=== PATIENT | female | born 1960 | race Caucasian/White ===

== ENCOUNTER → 2017-05-30 | Outpatient (CLI) | payer OTHER | LOC: M SLEEP 19:28 | DX: G47.33 Obstructive sleep apnea (adult) (pediatric) (principal) | CPT/HCPCS: 95811 ==

== ENCOUNTER → 2018-02-16 | Outpatient (CLI) | payer OTHER ==
[~2018-02-16] MED LIST: PROHANCE 279.3MG/ML 15ML VIAL (A9576) As Ordered
== END ==
LOC: M RAD 06:57
DX: R16.0 Hepatomegaly, not elsewhere classified (principal); R60.1 Generalized edema; E27.9 Disorder of adrenal gland, unspecified

== ENCOUNTER → 2019-11-02 | Outpatient (CLI) | payer OTHER ==
--- NOTE | 2019-11-02 17:30 | REP ---
REASON FOR EXAM: Tobacco abuse. There are no priors for comparison. The examination is markedly limited by the patient's body habitus and respiratory motion artifact. There are no priors for comparison. As per the protocol, only lung window images were sent to the read station for interpretation. There are scattered asymmetric densities throughout the lung arredondo. These could obscure significant nodules. There is a nodule in the right upper lobe posteriorly, which measures 8 mm. Hounsfield unit readings on this nodule show it is partially calcified. There is evidence of cardiomegaly. Lymphadenopathy cannot be assessed for due to limitations of the exam. IMPRESSION: 1. Markedly limited exam. 2. Evidence of a calcifying nodule on the right upper lobe as described above. 3. Exam is limited to such a degree of a standard protocol contrast enhanced CT examination of the chest would be indicated in this patient. Electronically Signed by Keith Arriaga DO 11/03/2019 08:38 A
== END ==
LOC: M RAD 12:55
PROVIDERS: ATTEND Nurse Practitioner Family
DX: Z87.891 Personal history of nicotine dependence (principal)

== ENCOUNTER → 2021-06-25 | Outpatient (REF) | payer OTHER | LOC: M LAB REF 13:05 | PROVIDERS: ATTEND Nurse Practitioner Family | DX: N18.31 Chronic kidney disease, stage 3a (principal) ==

== ENCOUNTER 2024-08-15 08:42 | Inpatient (IN) | payer OTHER ==
[2024-08-15] VITALS (16 sets, daily range): BP systolic 91–116; BP diastolic 52–77; TEMP 96.9–97.8; O2SAT 92–98
[~2024-08-15] VITALS: Ht 170.2 cm; Wt 148.6 kg
[2024-08-15] MEDS: FORMOTEROL FUMARATE 20 MCG/2 ML INHALATION SOLUTION (PERFOROMIST) INH SCH (08:00)
[2024-08-15] MEDS: GLYCOPYRROLATE INJ 0.2 MG/ML 2 ML VIAL NEB SCH (08:00)
[2024-08-15] MEDS: ASPIRIN 81MG ENTERIC TABLET PO SCH (09:00)
[2024-08-15] MEDS ORDERED: GLUCOSE 4 GM CHEW PO PRN (11:45)
[2024-08-15] MEDS ORDERED: GLUCAGON INJ 1MG VIAL SC PRN (11:45)
[2024-08-15] MEDS ORDERED: DEXTROSE 50% 50ML SYRINGE IV PRN (11:45)
[2024-08-15] MEDS: INSULIN LISPRO (NovoLOG) PER UNIT SC SCH ×2 (13:30→21:00)
[2024-08-15] MEDS: methylPREDNISolone 125MG 2ML VIAL IV SCH (13:58)
[2024-08-15] MEDS: FUROSEMIDE 100MG/10ML VIAL IV ONE (13:58)
[2024-08-15] MEDS ORDERED: METO50TA7 PO (14:26)
[2024-08-15] MEDS ORDERED: FAMO1TAB11 PO (14:26)
[2024-08-15] MEDS ORDERED: ERGO500029 PO (14:26)
[2024-08-15] MEDS ORDERED: ENTR1TAB PO (14:26)
[2024-08-15] MEDS ORDERED: LEVO50TA5 PO (14:26)
[2024-08-15] MEDS ORDERED: TORS20TA2 PO (14:26)
[2024-08-15] MEDS ORDERED: POTA-151 PO (14:26)
[2024-08-15] MEDS ORDERED: SIMV40TA20 PO (14:26)
[2024-08-15] MEDS ORDERED: SYMB16INH INH (14:26)
[2024-08-15] MEDS ORDERED: FOLI1TAB11 PO (14:26)
[2024-08-15] MEDS ORDERED: CALC1CAP31 PO (14:26)
[2024-08-15] MEDS ORDERED: ALLO100T PO (14:26)
[2024-08-15] MEDS ORDERED: ASPI-226 PO (14:26)
[2024-08-15] MEDS ORDERED: VENTAER INH (14:26)
[2024-08-15] MEDS ORDERED: JARD1TAB3 PO (14:26)
[2024-08-15] MEDS ORDERED: LORA-1041 PO (14:26)
[2024-08-15] MEDS ORDERED: SPIR-10 PO (14:26)
[2024-08-15] MEDS ORDERED: HOME MED LIST COMPLETE! XX SCH (14:30)
[2024-08-15] MEDS: AZITHROMYCIN 250MG TABLET PO SCH (14:40)
[2024-08-15] MEDS: OSELTAMIVIR PHOSPHATE 75 MG CAP PO SCH (14:40)
[2024-08-15 17:25] LABS: ALBUMIN 3.4 G/DL (3.2-5.2); ALKALINE PHOSPHATASE 169 U/L (35-104); ALT/SGPT 23 U/L (7.0-40); AST/SGOT 28 U/L (<34); BILIRUBIN,TOTAL 0.5 MG/DL (0.3-1.2); BLOOD UREA NITROGEN 22 MG/DL (9-23); CARBON DIOXIDE LEVEL 38 MMOL/L (20-31); CHLORIDE LEVEL 94 MMOL/L (98-107); CREATININE FOR GFR 0.96 MG/DL (0.55-1.30); GLOMERULAR FILTRATION RATE > 60.0 (>45); GLUCOSE, FASTING 120 MG/DL (74-106); MAGNESIUM LEVEL 2.2 MG/DL (1.8-2.4); POTASSIUM SERUM 4.5 MMOL/L (3.5-5.1); SODIUM LEVEL 138 MMOL/L (136-145); TOTAL PROTEIN 7.8 G/DL (5.7-8.2)
[2024-08-15 17:28] LABS: FREE T4 1.13 NG/DL (0.89-1.76)
[2024-08-15 17:30] LABS: THYROID STIMULATING HORMONE 0.212 uIU/ML (0.55-4.78)
[2024-08-15] MEDS: CALCITRIOL 0.25 MCG CAP (S0169) PO SCH (18:43)
[2024-08-15] MEDS: allopurinoL 100 MG TAB PO SCH (18:43)
[2024-08-15] MEDS: FOLIC ACID 1MG TAB PO SCH (18:43)
[2024-08-15] MEDS: cefTRIAXone SOD 1 GM in DEXTROSE 5% (D5W) ADV/MINI-BAG 50 ML IV SCH (20:22)
[2024-08-15] MEDS: SPIRONOLACTONE 25 MG TAB PO SCH (20:22)
[2024-08-15] MEDS: NYSTATIN 100,000 UNITS/GM TOPICAL PWD 15GM TOP PRN (20:23)
[2024-08-15] MEDS: ENOXAPARIN 60MG/0.6ML SYRINGE (J1650 PER 10MG) SC SCH (20:23)
[2024-08-15] MEDS: SIMVASTATIN 40 MG TAB PO SCH (20:41)
[2024-08-15] MEDS: METOPROLOL TART 50 MG TAB PO SCH (21:00)
[2024-08-16] VITALS (12 sets, daily range): BP systolic 91–123; BP diastolic 51–67; TEMP 96.7–97.7; O2SAT 91–95
[2024-08-16 05:19] LABS: BASO % 0.2 % (0.0-1.0); HEMATOCRIT 52.8 % (36.0-47.0); HEMOGLOBIN 16.4 g/dl (12.0-15.5); LYMPH # 0.4 10^3/uL (1.5-5.0); LYMPH % 6.7 % (24.0-44.0); MEAN CORPUSCULAR HGB CONC 31.1 g/dl (32.0-36.5); MEAN CORPUSCULAR VOLUME 96.7 fl (80.0-96.0); MONO # 0.3 10^3/uL (0.0-0.8); NEUTROPHILS # 5.5 10^3/uL (1.5-8.5); NEUTROPHILS % 88.5 % (36.0-66.0); PLATELET COUNT, AUTOMATED 123 10^3/uL (150-450); RED BLOOD COUNT 5.46 10^6/uL (4.00-5.40); WHITE BLOOD COUNT 6.3 10^3/uL (4.0-10.0)
[2024-08-16] MEDS: LEVOTHYROXINE 50MCG TABLET (0.05MG) PO SCH (05:34)
[2024-08-16 05:40] LABS: ALBUMIN 3.1 G/DL (3.2-5.2); ALKALINE PHOSPHATASE 148 U/L (35-104); ALT/SGPT 18 U/L (7.0-40); AST/SGOT 20 U/L (<34); BILIRUBIN,TOTAL 0.5 MG/DL (0.3-1.2); BLOOD UREA NITROGEN 27 MG/DL (9-23); CALCIUM LEVEL 8.9 MG/DL (8.3-10.6); CARBON DIOXIDE LEVEL 39 MMOL/L (20-31); CHLORIDE LEVEL 96 MMOL/L (98-107); CREATININE FOR GFR 0.88 MG/DL (0.55-1.30); GLOMERULAR FILTRATION RATE > 60.0 (>45); GLUCOSE, FASTING 124 MG/DL (74-106); MAGNESIUM LEVEL 2.3 MG/DL (1.8-2.4); POTASSIUM SERUM 4.3 MMOL/L (3.5-5.1); SODIUM LEVEL 139 MMOL/L (136-145); TOTAL PROTEIN 7.2 G/DL (5.7-8.2)
[2024-08-16] MEDS: FUROSEMIDE 40MG/4ML VIAL IV SCH (08:50)
[2024-08-16] MEDS: ACETAMINOPHEN 325 MG TAB PO PRN (08:51)
[2024-08-16] MEDS: LORATADINE 10 MG TAB PO SCH (08:52)
[2024-08-16] MEDS: PANTOPRAZOLE 40MG TAB (PROTONIX) PO SCH (08:52)
[2024-08-16] MEDS ORDERED: ACETAMINOPHEN 325 MG TAB PO PRN (10:30)
[2024-08-16 12:26] LABS: VENOUS BASE EXCESS 13.7 (-2.0-2.0); VENOUS HCO3 43.2 MMOL/L (23.0-27.0); VENOUS PARTIAL PRESSURE CO2 72.3 mmHg (38.0-50.0); VENOUS PARTIAL PRESSURE O2 141.3 mmHg (30.0-50.0); VENOUS PH 7.394 UNITS (7.330-7.430); VENOUS STANDARD HCO3 37.8 MMOL/L; VENOUS TOTAL CO2 45.4 MMOL/L (24.0-28.0)
[2024-08-16] MEDS: CEFDINIR 300 MG CAP (OMNICEF) PO SCH (12:41)
[2024-08-16] MEDS ORDERED: ALBUTEROL 90 MCG/ACT 8GM HFA INHALER INH PRN (16:30)
[2024-08-16 17:05] LABS: PROCALCITONIN 0.27 ng/ml
[2024-08-16] MEDS: SYMBICORT 160/4.5MCG INHALER 6GM INH SCH (19:05)
[2024-08-16] MEDS: FAMOTIDINE 20 MG TAB PO SCH (19:58)
[2024-08-17 03:51] VITALS: BP 97/52; TEMP 97; O2SAT 97
[2024-08-17 05:07] LABS: HEMATOCRIT 51.7 % (36.0-47.0); HEMOGLOBIN 16.2 g/dl (12.0-15.5); LYMPH # 0.4 10^3/uL (1.5-5.0); LYMPH % 6.6 % (24.0-44.0); MEAN CORPUSCULAR HEMOGLOBIN 30.1 pg (27.0-33.0); MEAN CORPUSCULAR HGB CONC 31.3 g/dl (32.0-36.5); MEAN CORPUSCULAR VOLUME 96.1 fl (80.0-96.0); MONO # 0.4 10^3/uL (0.0-0.8); MONO % 5.2 % (2.0-8.0); NEUTROPHILS # 5.9 10^3/uL (1.5-8.5); NEUTROPHILS % 87.9 % (36.0-66.0); PLATELET COUNT, AUTOMATED 144 10^3/uL (150-450); RED BLOOD COUNT 5.38 10^6/uL (4.00-5.40); WHITE BLOOD COUNT 6.7 10^3/uL (4.0-10.0)
[2024-08-17 05:35] LABS: ALBUMIN 3.2 G/DL (3.2-5.2); ALKALINE PHOSPHATASE 121 U/L (35-104); ALT/SGPT 18 U/L (7.0-40); AST/SGOT 17 U/L (<34); BILIRUBIN,TOTAL 0.4 MG/DL (0.3-1.2); BLOOD UREA NITROGEN 31 MG/DL (9-23); CALCIUM LEVEL 9.3 MG/DL (8.3-10.6); CARBON DIOXIDE LEVEL 38 MMOL/L (20-31); CHLORIDE LEVEL 96 MMOL/L (98-107); CREATININE FOR GFR 0.78 MG/DL (0.55-1.30); GLOMERULAR FILTRATION RATE > 60.0 (>45); GLUCOSE, FASTING 155 MG/DL (74-106); MAGNESIUM LEVEL 2.3 MG/DL (1.8-2.4); POTASSIUM SERUM 4.7 MMOL/L (3.5-5.1); SODIUM LEVEL 138 MMOL/L (136-145); TOTAL PROTEIN 7.1 G/DL (5.7-8.2)
[2024-08-17 07:32] VITALS: BP 122/63; TEMP 98.9; O2SAT 87
[2024-08-17 11:35] VITALS: BP 121/65; TEMP 98; O2SAT 93
[2024-08-17 20:00] VITALS: BP 101/52; TEMP 97.4; O2SAT 91
[2024-08-17 23:52] VITALS: BP 104/54; TEMP 96.8; O2SAT 91
[2024-08-18 04:00] VITALS: BP 104/59; TEMP 96.5; O2SAT 95
[2024-08-18 05:20] LABS: BASO % 0.2 % (0.0-1.0); HEMATOCRIT 53.1 % (36.0-47.0); HEMOGLOBIN 16.7 g/dl (12.0-15.5); LYMPH # 0.7 10^3/uL (1.5-5.0); LYMPH % 14.1 % (24.0-44.0); MEAN CORPUSCULAR HGB CONC 31.5 g/dl (32.0-36.5); MEAN CORPUSCULAR VOLUME 95.5 fl (80.0-96.0); MONO # 0.6 10^3/uL (0.0-0.8); NEUTROPHILS # 3.8 10^3/uL (1.5-8.5); NEUTROPHILS % 74.3 % (36.0-66.0); PLATELET COUNT, AUTOMATED 136 10^3/uL (150-450); RED BLOOD COUNT 5.56 10^6/uL (4.00-5.40); WHITE BLOOD COUNT 5.2 10^3/uL (4.0-10.0)
[2024-08-18 05:58] LABS: ALBUMIN 3.1 G/DL (3.2-5.2); ALKALINE PHOSPHATASE 108 U/L (35-104); ALT/SGPT 26 U/L (7.0-40); AST/SGOT 32 U/L (<34); BILIRUBIN,TOTAL 0.7 MG/DL (0.3-1.2); BLOOD UREA NITROGEN 32 MG/DL (9-23); CALCIUM LEVEL 9.5 MG/DL (8.3-10.6); CARBON DIOXIDE LEVEL 40 MMOL/L (20-31); CHLORIDE LEVEL 96 MMOL/L (98-107); GLOMERULAR FILTRATION RATE > 60.0 (>45); GLUCOSE, FASTING 104 MG/DL (74-106); MAGNESIUM LEVEL 2.3 MG/DL (1.8-2.4); POTASSIUM SERUM 4.4 MMOL/L (3.5-5.1); SODIUM LEVEL 138 MMOL/L (136-145); TOTAL PROTEIN 7.1 G/DL (5.7-8.2)
[2024-08-18 08:00] VITALS: BP 119/63; TEMP 98.7; O2SAT 89
[2024-08-18 08:10] VITALS: O2SAT 92
[2024-08-18] MEDS: TORSEMIDE 20 MG TAB PO SCH (08:16)
[2024-08-18] MEDS: predniSONE 20 MG TAB PO SCH (08:16)
[2024-08-18 08:18] VITALS: BP 119/63
[2024-08-18] MEDS: METOPROLOL TART 25 MG TABLET PO SCH (08:18)
[2024-08-18] MEDS ORDERED: CEFD1CAP9 PO (09:51)
[2024-08-18] MEDS ORDERED: METO50TA7 PO (09:51)
[2024-08-18] MEDS ORDERED: PRED10TA2 PO (09:51)
[2024-08-18 11:55] VITALS: BP 121/77; TEMP 97.1; O2SAT 93
[2024-08-18] MEDS ORDERED: SENOKOT S TAB PO SCH (21:00)
[2024-08-19] MEDS ORDERED: MIRALAX *UNIT DOSE* 17GM PACKET PO SCH (09:00)
== END 2024-08-18 16:07 | disposition home health service (06) | DRG 133 ==
LOC: M ICU 10:39 → M PCU 08-18 11:52
PROVIDERS: ADMIT Internal Medicine Pulmonary Disease; ATTEND Internal Medicine
PROC: B246ZZZ Ultrasonography of Right and Left Heart (ICD-10-PCS; principal; 2024-08-16)
DX: J96.22 Acute and chronic respiratory failure with hypercapnia (principal); I13.0 Hypertensive heart and chronic kidney disease with heart failure and stage 1 through stage 4 chronic kidney disease, or unspecified chronic kidney disease; E11.22 Type 2 diabetes mellitus with diabetic chronic kidney disease; I50.9 Heart failure, unspecified; J44.0 Chronic obstructive pulmonary disease with (acute) lower respiratory infection; I48.91 Unspecified atrial fibrillation; N25.81 Secondary hyperparathyroidism of renal origin; N18.31 Chronic kidney disease, stage 3a; J96.21 Acute and chronic respiratory failure with hypoxia; J45.909 Unspecified asthma, uncomplicated; J10.1 Influenza due to other identified influenza virus with other respiratory manifestations; F17.200 Nicotine dependence, unspecified, uncomplicated; I77.819 Aortic ectasia, unspecified site; Z66 Do not resuscitate; J20.9 Acute bronchitis, unspecified; M10.9 Gout, unspecified; R41.9 Unspecified symptoms and signs involving cognitive functions and awareness; Z99.81 Dependence on supplemental oxygen; K21.9 Gastro-esophageal reflux disease without esophagitis; E03.9 Hypothyroidism, unspecified; Z86.73 Personal history of transient ischemic attack (TIA), and cerebral infarction without residual deficits; Z79.82 Long term (current) use of aspirin; Z79.899 Other long term (current) drug therapy